=== PATIENT | female | born 1995 | race Caucasian/White ===

== ENCOUNTER 2021-07-12 14:47 | Outpatient (REF) | payer MEDICAID, SELFPAY ==
[2021-07-12 16:37] LABS: *AMPHETAMINES SCREEN URINE Negative (Negative); *BARBITURATES SCREEN URINE Negative (Negative); *BENZODIAZEPINES SCREEN URINE Negative (Negative); Cannabinoids THC Negative (Negative); Cocaine Screen,Urine Negative (Negative); METHADONE URINE SCREEN Negative (Negative); OPIATES URINE SCREEN Negative (Negative)
[2021-07-12 16:42] LABS: Tricyclic Antidepressants Negative (Negative)
[2021-07-14 14:43] LABS: Chlamydia Result Negative (Negative); GC Result Negative (Negative)
[2021-07-16 12:20] LABS: Buprenorphine Negative ng/mL (Cutoff: 5.0); Norbuprenorphine Negative ng/mL (Cutoff: 2.5)
== END 2021-07-12 14:48 | disposition home or self-care (01) ==
LOC: LBN 14:47
PROVIDERS: Visit Provider Advanced Practice Midwife
DX: Z34.92 Encounter for supervision of normal pregnancy, unspecified, second trimester (principal); Z3A.14 14 weeks gestation of pregnancy
CPT/HCPCS: 80307; 87491; 87591; 87086

== ENCOUNTER 2021-07-16 02:08 | Outpatient (CLI) | payer SELFPAY | END 2021-07-16 02:09 | disposition home or self-care (01) | PROVIDERS: Visit Provider Advanced Practice Midwife ==